=== PATIENT | male | born 1975 | race Caucasian/White ===

== ENCOUNTER → 2023-08-16 10:34 | Outpatient (CLI) | payer OTHER, SELFPAY ==
--- NOTE | 2023-08-16 10:38 | DI.MRI.S_ITS ---
PROCEDURE: MR CERVICAL SPINE WO CON INDICATIONS: RIGHT SHOULDER PAIN;Pain in NECK AND knee TECHNIQUE: Noncontrast sagittal T1 spin echo and T2 fast spin echo, sagittal STIR, foraminal oblique sagittal T2 fast spin echo, and axial gradient echo or T2 fast spin echo through the cervical spine. COMPARISON: None. FINDINGS: Image quality: Excellent. Alignment and Curvature: There is normal bony alignment. Bone Marrow: Marrow demonstrates normal overall signal. Spinal Cord: Visualized spinal cord has normal size and signal. No cerebellar tonsillar herniation. Paraspinous Soft Tissues: No paravertebral masses. Prevertebral soft tissues are normal in thickness. C2-C3: Normal appearance. C3-C4: Normal appearance. C4-C5: Mild facet and uncovertebral arthropathy. Mild left neural foraminal stenosis. No central canal or right neural foraminal stenosis. C5-C6: Disc desiccation and minimal posterior disc osteophyte complex. No central canal stenosis. Facet and uncovertebral arthropathy. Moderate right and no left neural foraminal stenosis. C6-C7: No central canal or neural foraminal stenosis. C7-T1: Normal appearance. IMPRESSION: 1. Mild degenerative changes of the cervical spine. 2. No significant central canal stenosis. 3. Moderate right neural foraminal stenosis C5-C6. Mild left neural foraminal stenosis at C4-C5. Otherwise, the neural foramina are patent. Dictated by: Tenzin Bahena M.D. on 08/16/2023 at 11:42 Approved by: Tenzin Bahena M.D. on 08/16/2023 at 11:50
--- NOTE | 2023-08-16 10:38 | DI.RAD.S_ITS ---
PROCEDURE: FL SHOULDER INJECTION MR/CT RT INDICATIONS: RIGHT SHOULDER PAIN;Pain in NECK AND knee COMPARISON: None. TECHNIQUE: The indications, alternatives, benefits, risks, and complications of the procedure were explained to the patient. Written informed consent was obtained and placed in the chart. The shoulder was examined fluoroscopically and a site for needle placement chosen for entry into the glenohumeral joint from an anterior approach. The skin was prepped and draped in a sterile fashion, and 1% lidocaine infiltrated from skin down to joint capsule. A spinal needle was inserted into the glenohumeral joint, and a small amount of iodinated contrast media injected to confirm intra-articular placement of the needle tip. This was followed by approximately 12 mL dilute solution of a gadolinium containing MR contrast agent. The needle was removed and a dressing was applied. The patient was given postprocedural instructions and sent to the MR suite for MR imaging. FINDINGS: A single fluoroscopic spot image demonstrates intra-articular location of injected iodinated contrast. IMPRESSION: Successful fluoroscopically guided administration of dilute Gadolinium solution into the shoulder joint for MR arthrogram. Dictated by: Brandie Ortega M.D. on 08/16/2023 at 13:33 Approved by: Brandie Ortega M.D. on 08/16/2023 at 13:33
--- NOTE | 2023-08-16 10:39 | DI.MRI.S_ITS ---
PROCEDURE: MR SHOULDER RT W CON INDICATIONS: RIGHT SHOULDER PAIN;Pain in NECK AND knee TECHNIQUE: After the administration of 12 mL of dilute intra-articular Gadolinium contrast, oblique coronal T1 and T2 spin echo with fat saturation, oblique sagittal T1 spin echo with and without fat saturation, oblique sagittal T2 fast spin echo with fat saturation, axial T1 spin echo with fat saturation through the shoulder. COMPARISON: None. FINDINGS: Image quality: Excellent. Rotator cuff: Low-grade articular and bursal surface partial thickness tear involving distal supraspinatus at its insertion on the humeral head is seen extending to musculotendinous junction. Distal infraspinatus and subscapularis tendinosis is seen. No full-thickness rotator cuff tendon rupture. No rotator cuff muscle atrophy on sagittal images. Bones and bursae: No bone marrow contusions or fractures. Mild to moderate acromioclavicular joint osteoarthritic changes are seen with joint space narrowing, subchondral sclerosis and downward osteophyte formation depressing the musculotendinous junction of supraspinatus. The acromion demonstrates conventional anatomy, without an os acromiale. Capsule and soft tissues: The labrum and glenohumeral ligaments appear intact. Sublabral foramen is seen which is a normal variant. The long head of the biceps tendon demonstrates normal location and morphology. The rotator interval appears normal, without fibrosis. The coracohumeral ligament is of normal thickness. No intra-articular bodies. IMPRESSION: 1. Low-grade articular and bursal surface partial thickness tear involving distal supraspinatus at its insertion on the humeral head extending to musculotendinous junction. Distal infraspinatus and subscapularis tendinosis. No full-thickness rotator cuff tendon rupture. 2. [id number] acromioclavicular joint osteoarthritis. No marrow edema. No fracture or dislocation. No gross intra-articular loose bodies. 3. No evidence of focal labral tear. Presence of sublabral foramen which is a normal variant. Dictated by: Tre Perkins M.D. on 08/16/2023 at 12:16 Approved by: Tre Perkins M.D. on 08/16/2023 at 12:35
--- NOTE | 2023-08-16 10:39 | DI.MRI.S_ITS ---
PROCEDURE: MR KNEE RT WO CON INDICATIONS: RIGHT SHOULDER PAIN;Pain in NECK AND knee TECHNIQUE: Noncontrast sagittal PD fast spin echo and T2 fast spin echo with fat saturation, sagittal 3-D FLASH with fat saturation; coronal T1 spin echo and PD fast spin echo with fat saturation, and axial PD fast spin echo with fat saturation through the knee. COMPARISON: None. FINDINGS: Image quality: Excellent. Anterior cruciate ligament: Intact. Posterior cruciate ligament: Intact. Medial collateral ligament: Intact. Lateral collateral ligament: Intact. Medial meniscus: Intact. Lateral meniscus: Intact. Medial and lateral tendons: The semimembranosus tendon insertions appear intact. Visualized portions of the pes anserinus tendons appear normal. The popliteus tendon is intact. Iliotibial band appears normal. Anterior structures: Focal fluid signal is seen along the anterior patella that is suspicious for partial tearing of the prepatellar quadriceps continuation (images 10-11 of axial series 6, image 3 of series 11, image 12 series 8). The proper distal quadriceps tendon and patellar tendon are intact. No patellar subluxation. No femoral trochlear dysplasia or ventral trochlear prominence. No edema in the infrapatellar fat pad. Bones and cartilage: No bone marrow contusions or fractures. Medial femorotibial cartilage: No focal cartilage defect. Lateral femorotibial cartilage: No focal cartilage defect. Patellofemoral cartilage: Full-thickness cartilage loss is seen at the lateral femoral trochlea and the lateral patellar facet with subchondral edema and subchondral cystic changes. Soft tissues: A lobular cyst is seen along the posterior horn of the medial meniscus measuring up to 2.8 x 1.5 x 3.6 cm, which may represent a ganglion cyst, parameniscal cyst, or loculated joint fluid. There is a small joint effusion. Trace medial popliteal cyst. The musculature surrounding the knee is normal in bulk. IMPRESSION: 1. Focal full-thickness cartilage loss at the lateral femoral condyle and the lateral patellar facet with subchondral edema and subchondral cystic changes. 2. Suspected partial tearing of the prepatellar continuation of the quadriceps fibers. The proper quadriceps tendon and the patellar tendon are intact. 3. No acute trabecular bone injury. Cruciate and collateral ligaments are intact. No meniscal tear is seen. 4. Small joint effusion. Lobular cyst along the posterior aspect of the medial femorotibial compartment measures up to 3.6 cm and is most likely a ganglion cyst versus parameniscal cyst or loculated joint fluid. Approved by: Simon Wu M.D. on 08/16/2023 at 15:21
[2023-08-16] MEDS: SODIUM CHLORIDE 0.9 % 20 ML VIAL IV (11:40)
[2023-08-16] MEDS: LIDOCAINE 1% 20 ML INJ (11:40)
== END ==
PROVIDERS: PCP Preventive Medicine Aerospace Medicine; Referring Provider Orthopaedic Surgery; Visit Provider Orthopaedic Surgery
DX: M47.812 Spondylosis without myelopathy or radiculopathy, cervical region (principal); M48.02 Spinal stenosis, cervical region; M54.2 Cervicalgia; M75.111 Incomplete rotator cuff tear or rupture of right shoulder, not specified as traumatic; M19.011 Primary osteoarthritis, right shoulder; M25.511 Pain in right shoulder; M25.512 Pain in left shoulder; R60.0 Localized edema; M25.461 Effusion, right knee; M25.561 Pain in right knee
CPT/HCPCS: 23350; 72141; 73222; 73721; 77002; A9579; Q9967

== ENCOUNTER → 2023-08-23 11:00 | Outpatient (CLI) | payer OTHER, SELFPAY ==
--- NOTE | 2023-08-23 11:01 | DI.RAD.S_ITS ---
PROCEDURE: FL SHOULDER INJECTION MR/CT LT INDICATIONS: LEFT SHOULDER PAIN COMPARISON: [facility], MR, MR SHOULDER LT W CON, 08/23/2023, 11:59. TECHNIQUE: The indications, alternatives, benefits, risks, and complications of the procedure were explained to the patient. Written informed consent was obtained and placed in the chart. The shoulder was examined fluoroscopically and a site for needle placement chosen for entry into the glenohumeral joint from an anterior approach. The skin was prepped and draped in a sterile fashion, and 1% lidocaine infiltrated from skin down to joint capsule. A spinal needle was inserted into the glenohumeral joint, and a small amount of iodinated contrast media injected to confirm intra-articular placement of the needle tip. This was followed by approximately 12 mL dilute solution of a gadolinium containing MR contrast agent. The needle was removed and a dressing was applied. The patient was given postprocedural instructions and sent to the MR suite for MR imaging. FINDINGS: A single fluoroscopic spot image demonstrates intra-articular location of injected iodinated contrast. IMPRESSION: Successful fluoroscopically guided administration of dilute Gadolinium solution into the shoulder joint for MR arthrogram. Dictated by: Reddy Parry M.D. on 08/23/2023 at 17:21 Approved by: Reddy Parry M.D. on 08/23/2023 at 17:22
--- NOTE | 2023-08-23 11:02 | DI.MRI.S_ITS ---
PROCEDURE: MR SHOULDER LT W CON INDICATIONS: LEFT SHOULDER PAIN TECHNIQUE: After the administration of 12 mL of dilute intra-articular Gadolinium contrast, oblique coronal T1 and T2 spin echo with fat saturation, oblique sagittal T1 spin echo with and without fat saturation, oblique sagittal T2 fast spin echo with fat saturation, axial T1 spin echo with fat saturation through the shoulder. COMPARISON: [facility], MR, MR SHOULDER RT W CON, 08/16/2023, 11:36. FINDINGS: Image quality: Excellent. Rotator cuff: Low-grade articular and bursal surface partial thickness tear involving distal supraspinatus at its insertion on the humeral head is seen extending to musculotendinous junction. Distal infraspinatus and subscapularis tendinosis is noted. No full-thickness rotator cuff tendon rupture. No rotator cuff muscle atrophy on sagittal images. Bones and bursae: No bone marrow contusions or fractures. Moderate acromioclavicular joint osteoarthritic changes are seen with joint space narrowing, subchondral sclerosis and downward osteophyte formation depressing the musculotendinous junction of supraspinatus. Mild to moderate glenohumeral joint osteoarthritic changes also seen with joint space narrowing and small marginal osteophyte formation. The acromion demonstrates conventional anatomy, without an os acromiale. Capsule and soft tissues: The labrum and glenohumeral ligaments appear intact. The long head of the biceps tendon demonstrates normal location and morphology. The rotator interval appears normal, without fibrosis. The coracohumeral ligament is of normal thickness. No intra-articular bodies. IMPRESSION: 1. Low-grade articular and bursal surface partial thickness tear involving distal supraspinatus extending to musculotendinous junction. Distal infraspinatus tendinosis. No full-thickness rotator cuff tendon rupture. No significant rotator cuff muscle atrophy. 2. Moderate acromioclavicular joint osteoarthritis and [id number] glenohumeral joint osteoarthritis. No fracture or dislocation. No gross intra-articular loose bodies. 3. No evidence of focal labral tear. Dictated by: Tre Perkins M.D. on 08/23/2023 at 14:34 Approved by: Tre Perkins M.D. on 08/23/2023 at 14:37
[2023-08-23] MEDS: LIDOCAINE 1% 20 ML INJ (13:00)
[2023-08-23] MEDS: SODIUM CHLORIDE 0.9 % 20 ML VIAL IV (13:01)
== END ==
PROVIDERS: Family Provider Preventive Medicine Aerospace Medicine; PCP Preventive Medicine Aerospace Medicine; Referring Provider Orthopaedic Surgery; Visit Provider Orthopaedic Surgery
DX: M75.112 Incomplete rotator cuff tear or rupture of left shoulder, not specified as traumatic (principal); M19.012 Primary osteoarthritis, left shoulder; M25.511 Pain in right shoulder; M25.512 Pain in left shoulder
CPT/HCPCS: 23350; 73040; 73222; A9579

== ENCOUNTER → 2023-09-12 14:47 | Outpatient (CLI) | payer OTHER, SELFPAY | PROVIDERS: Family Provider Preventive Medicine Aerospace Medicine; PCP Preventive Medicine Aerospace Medicine; Referring Provider Orthopaedic Surgery; Visit Provider Orthopaedic Surgery | DX: G56.20 Lesion of ulnar nerve, unspecified upper limb (principal) | CPT/HCPCS: 95885; 95886; 95912 ==

== ENCOUNTER → 2023-10-17 10:47 | Outpatient (CLI) | payer OTHER, SELFPAY ==
--- NOTE | 2023-10-17 10:51 | DI.RAD.S_ITS ---
PROCEDURE: XR FOOT RT 2V INDICATIONS: Pathological fracture, unspecified site, initial encounter f TECHNIQUE: 2 views of the foot were acquired. COMPARISON: None. FINDINGS: Bones: No fractures or dislocations. Corticated ossific density in the radial aspect of the 1st IP joint likely represents sequela of remote trauma versus accessory ossicle. No suspicious bony lesions. Normal alignment on nonweightbearing view. Soft tissues: No tibiotalar joint effusion. Achilles tendon appears normal. Two punctate hyperdensities in the plantar aspect of the calcaneus. IMPRESSION: 1. No acute bony abnormality. 2. Two punctate hyperdensities in the plantar aspect of the calcaneus compatible with radiopaque foreign bodies. Dictated by: Aba Medina M.D. on 10/17/2023 at 17:52 Approved by: Aba Medina M.D. on 10/17/2023 at 17:53
--- NOTE | 2023-10-17 10:51 | DI.RAD.S_ITS ---
PROCEDURE: XR RIBS LT 2V INDICATIONS: Pathological fracture, unspecified site, initial encounter f TECHNIQUE: 2 views of the ribs were acquired. COMPARISON: None. FINDINGS: Surgical changes and devices: None. Bones and chest wall: No fractures or dislocations. No suspicious bony lesions. Overlying soft tissues appear unremarkable. Lungs and pleura: The visualized lung appears clear. No pleural effusions or pneumothorax are visible. IMPRESSION: No displaced rib fracture. Dictated by: Aba Medina M.D. on 10/17/2023 at 17:53 Approved by: Aba Medina M.D. on 10/17/2023 at 17:53
== END ==
PROVIDERS: Family Provider Preventive Medicine Aerospace Medicine; PCP Preventive Medicine Aerospace Medicine; Referring Provider Chiropractor; Visit Provider Chiropractor
DX: M84.40XA Pathological fracture, unspecified site, initial encounter for fracture (principal)
CPT/HCPCS: 71100; 73620